=== PATIENT | female | born 1940 | race Caucasian/White ===

== ENCOUNTER 2022-08-10 08:52 | Day surgery (SDC) | payer MEDICARE, BC, SELFPAY ==
[2022-08-01 13:45] VITALS: BMI 31.5
--- NOTE | 2022-08-10 09:02 | WPDHPUPDATE1 ---
History and Physical Update Update Date/Time: 08/10/22 09:02 History and Physical has been reviewed, including an updated exam of the patient. There are NO changes in the patient's condition. Risks, benefits, and alternatives have been discussed and questions answered. Patient agrees to proceed with procedure.
[2022-08-10 09:10] VITALS: BP 135/83; PULSE 91; RESP 20; TEMP 36.6; O2SAT 100
[2022-08-10] MEDS: OFLOXACIN 0.3% OPHTH SOLN 5 ML BTL 1 DROP AFFCTD EYE (09:15)
[2022-08-10] MEDS: TETRACAINE HCL 0.5% OPHTH SOLN 4 ML BTL 1 DROP AFFCTD EYE ×3 (09:15→09:25)
--- NOTE | 2022-08-10 09:42 | WPDANESEPPF ---
Anes - Initial Pre Proc Eval Procedure: Operation Date: 08/10/22 10:00 Proposed Procedures p Cataract Extraction with Lens Implant-Left Eye - Manuel Robledo MD Date/Time: 08/10/22 09:42 Surgeon: Manuel Robledo MD Pre Op Diagnosis: Cataract Left Eye Patient Data Age: 81 Gender: F Height: 1.65 m Weight: 88 kg Last Vital Signs Temp 36.6 C 08/10/22 09:10 Pulse 91 08/10/22 09:10 Resp 20 08/10/22 09:10 BP 135/83 08/10/22 09:10 Pulse Ox 100 08/10/22 09:10 O2 Del Method Room Air 08/10/22 09:10 Allergies Allergy/AdvReac Type Severity Reaction Status Date / Time adhesive tape AdvReac Blister Verified 08/10/22 09:20 Home Medications Medication Instructions Recorded Confirmed Type losartan 50 mg tablet 50 mg PO DAILY 08/01/22 08/10/22 History metoprolol succinate 50 mg 50 mg PO DAILY 08/01/22 08/10/22 History tablet,extended release 24 hr Patient hx anesthesia problems: none Family hx anesthesia problems: post op nausea/vomiting Results Review: All pre-operative results and documents have been reviewed as part of the pre-operative evaluation. [facility] Past Medical History Medical History (Updated 08/10/22 @ 09:43 by Adriano Johnson MD) Hypertension PITO (obstructive sleep apnea) Recent URI Social History Social History Smoking status: Never smoker Second hand tobacco smoke exposure: No Alcohol intake: never Substance use: never Substance use type: does not use Living arrangements: with family Spiritual care concerns: No Anes - Eval Final PreProcedure Day of Procedure 08/10/22 09:42 Patient weight: obese Heart: regular rate and rhythm Lungs: clear to auscultation Airway: Mallampati scale class II Neurological: other (alert) Last oral intake: >/= 8 hours ASA classification: III Emergent: no Anesthetic plan: proceed Anesthesia type and monitoring: monitored anesthesia care Results Review: All pre-operative results and documents have been reviewed as part of the pre-operative evaluation. Informed Consent: The patient's anesthetic plan and its attendant risks and benefits were discussed with the patient/family/POA. Questions were solicited and answers provided to the satisfaction of the patient/family/POA.
[2022-08-10] MEDS: LIDOCAINE HCL 1% PF INJ 5 ML VIAL 1 ML INTRAOCULA (10:26)
[2022-08-10] MEDS: LIDOCAINE HCL 2% JELLY 5 ML TUBE 1 APPLIC AFFCTD EYE (10:34)
[2022-08-10] MEDS: HOME MEDICATION 1 EACH AFFCTD EYE (10:51)
[2022-08-10] MEDS: NEOMYCIN/POLYMYXIN/DEXAMETH OP OINT 3.5 GM TUBE 1 APPLIC AFFCTD EYE (10:51)
[2022-08-10 10:54] VITALS: BP 139/67; PULSE 83; RESP 16; O2SAT 98
[2022-08-10] MEDS: acetaZOLAMIDE TAB 250 MG TABLET PO (10:58)
--- NOTE | 2022-08-10 11:01 | WPDANESPN ---
Anes - Prog Note Post-Op Date/Time: 08/10/22 11:01 Cardiovascular status: normal Respiratory status: normal Airway patency: baseline Mental status: baseline Post-Op hydration status: normal Vital Signs: Last Vital Signs Temp 36.6 C 08/10/22 09:10 Pulse 91 08/10/22 09:10 Resp 20 08/10/22 09:10 BP 135/83 08/10/22 09:10 Pulse Ox 100 08/10/22 09:10 O2 Del Method Room Air 08/10/22 09:10 Pain Score (VAS): 0 Patient Feedback: Patient satisfied with anesthetic care.
--- NOTE | 2022-08-10 11:56 | W.PM.PROC2 ---
Procedure Note - Detailed Date of Procedure 08/10/22 Pre-op Diagnosis 1) Cataract Left Eye 2) Miotic pupillary cyst LEFT eye Post-op Diagnosis Same Procedure Performed Complex cataract Extraction (by Phacoemulsification) and lntraocular Lens Implant Surgeon Manuel Robledo MD Anesthesia MAC Description of Procedure The eye was anesthetized with topical 0.75% bupivacaine. After intravenous sedation and placement of monitors, the patient was prepped and draped in the usual sterile manner. A lid speculum was placed. A paracentesis was made, and preservative free 1% lidocaine was instilled in the anterior chamber. The anterior chamber was then filled with Viscoat viscoelastic and a Malyugin ring was placed. A fabricio keratome was used to create the wound. Continuous tear anterior capsulotomy was performed. The lens was hydro dissected before being removed with phacoemulsification. The remaining lenticular cortex was removed with aspiration. The capsular bag was polished and filled with viscoelastic material. An intraocular lens was chosen, inspected, irrigated and placed within the capsular bag where it was seen to be centered and stable. The ring was rmeoved and viscoelastic material was aspirated. The wound was closed and found to be watertight. Ciloxan drops were placed in the eye. The speculum was removed. A Suarez shield was applied. The patient tolerated the procedure well and left the operating room in satisfactory condition. Implants See chart Complications None Condition Stable Disposition Same day
== END 2022-08-10 11:14 | disposition home or self-care (01) ==
PROVIDERS: PCP Internal Medicine; Visit Provider Student in an Organized Health Care Education/Training Program
PROC: (CPT 66983; principal; 2022-08-10 10:00)
DX: H25.12 Age-related nuclear cataract, left eye (principal)
CPT/HCPCS: 66982; JTORIC